=== PATIENT | male | born 1950 | race Caucasian/White ===

== ENCOUNTER 2023-12-14 05:00 | Emergency (ER) | payer MEDICARE ==
[2023-12-14] MEDS ORDERED: KETOROLAC 15 MG/ML 1 ML VIAL ONE (08:13)
[2023-12-14] MEDS ORDERED: LIDOCAINE 4% PATCH TOPICAL ONE (08:13)
[2023-12-14] MEDS ORDERED: diazePAM 2 MG TAB ONE (08:14)
[2023-12-14] MEDS ORDERED: SODIUM CHLORIDE 0.9% 1,000 ML BAG ONE (08:41)
--- NOTE | 2024-01-23 14:18 | CT ---
EXAMINATION TYPE: CT thor lumbar spine wo con DATE OF EXAM: 12/14/2023 COMPARISON: None HISTORY: 73-year-old male back spasms and pain TECHNIQUE: Contiguous axial scanning of the thoracic and lumbar spine without IV contrast. Coronal an d sagittal reconstructions performed. CT DLP: 1418.2 mGycm Automated exposure control for dose reduction was used. FINDINGS: Thoracic spine: 1.7 cm hypodense lesion lower pole right kidney suggestive of a cyst. There is also a nonobstructing 6 mm right lower pole renal stone. Tiny hiatal hernia and low attenuation of the hepatic parenchyma suggesting fatty infiltration. Slightly accentuated midthoracic kyphosis with mild multilevel degenerative disc disease. Prominent a nterior and plate spondylosis mid to lower thoracic spine. Moderate to advanced spondylotic change vi sualized lower cervical spine. There is trace grade 1 anterolisthesis at T2-T3 and T3-T4. Remaining a lignment is maintained. Vertebral body heights are preserved. No acute fracture is seen. Scattered mi ld to moderate facet arthropathy. By CT, no evident large focal disc herniation in the thoracic spine and no canal compromise. Changes result in moderate right neural foraminal stenosis at T1-T2 and T2-T3 and mild on the left. Lumbar spine: Vertebral body heights are preserved. Trace grade 1 retrolisthesis L2-L3. Moderate to severe degenerative disc disease mid to lower lumbar spine with desiccated, narrowed, and bulging discs. Moderate to advanced hypertrophic facet arthropathy mid to lower lumbar spine. Vertebral body heights are preserved. Disc osteophyte complex with ligamentum flavum thickening and facet arthropathy at L3-L4 contributes to at least a moderate spinal canal stenosis here. On the right, changes result in mild to moderate neuroforaminal stenosis at L4-L5 and L5-S1. Mild at L3-L4. On the left, changes result in moderate to severe neuroforaminal stenosis at L5-S1 and moderate at L4 -L5. Mild degenerative change in the SI joints. IMPRESSION (thoracic and lumbar spine): 1. MILD MULTILEVEL DEGENERATIVE DISC DISEASE WITH SCATTERED MILD TO MODERATE FACET ARTHROPATHY IN THE THORACIC SPINE. ACCENTUATED MID THORACIC KYPHOSIS. 2. MODERATE TO ADVANCED DEGENERATIVE DISC DISEASE AND MODERATE FACET ARTHROPATHY MID TO LOWER LUMBAR SPINE. 3. DEGENERATIVE TRACE GRADE 1 SPONDYLOLISTHESIS T2-T3, T3-T4, AND L2-L3. NO VERTEBRAL COMPRESSION COL LAPSE OR ACUTE FRACTURE SEEN. 4. CHANGES RESULT IN AT LEAST A MODERATE FOCAL SPINAL CANAL STENOSIS AT L3-L4. 5. VARIABLE NEUROFORAMINAL STENOSES IN THE LOWER LUMBAR SPINE OUTLINED ABOVE, MODERATE TO SEVERE O N THE LEFT AT L5-S1.
== END 2023-12-14 10:33 | disposition home or self-care (01) ==
LOC: EC 05:00
CPT/HCPCS: 72128; 72131; 96361; 96374; 99284